=== PATIENT | female | born 1940 | race African-American/Black ===

== ENCOUNTER 2018-06-22 05:57 | Inpatient (IN) ==
[2018-06-17 13:16] LABS: Basophils # 0.1 10*3/uL (0.0-0.2); Basophils % 0.6 % (0.0-0.8); Eosinophils # 0.1 10*3/uL (0.0-0.87); Eosinophils % 1.5 % (0.00-10.9); Hematocrit 29.8 VOL% (35.7-47.0); Immature Granulocytes % 0.5 %; Immature Granulocytes Absolute 0.04 #; Lymphocytes # 1.1 10*3/uL (1.4-4.0); Lymphocytes % 12.7 % (21.3-54.2); Mean Corpuscular HGB Conc 30.2 GM/DL (32-36); Mean Corpuscular Hemoglobin 28 PG (27-34); Mean Corpuscular Volume 93.1 FL (87-102); Mean Platelet Volume 9.3 FL (9.6-12.0); Monocytes # 0.4 10*3/uL (0.11-0.8); Monocytes % 5.2 % (1.7-12.7); Neutrophils # 6.6 10*3/uL (1.4-7.4); Neutrophils % 79.5 % (38.7-73.9); Platelet Count 474 T/CUMM (130-400); White Blood Count 8.3 T/CUMM (4-12)
[2018-06-17 13:53] LABS: Calcium 9.4 MG/DL (8.5-10.1); Osmolality,Calculated 279.4 MOS/KG (273-304); Potassium 4.2 MMOL/L (3.5-5.1)
[~2018-06-22 05:57] MED LIST: CLINDAMYCIN INJ 50 ML IV ONE
[2018-06-22] MEDS ORDERED: FAMOTIDINE 20 MG TABLET PO ONE (06:00)
[2018-06-22] MEDS ORDERED: FAMOTIDINE 20 MG TABLET ONE (06:05)
[2018-06-22] MEDS ORDERED: CLINDAMYCIN INJ 900 MG in PREMIX 1 EACH IV ONE (06:30)
[2018-06-22] MEDS: LACTATED RINGERS 1,000 ML IV SCH ×3 (07:10→20:59)
[2018-06-22] MEDS ORDERED: SEVOFLURANE 1 UNIT/15 MINUTE INH ONE (08:49)
[2018-06-22] MEDS ORDERED: KETOROLAC 30 MG/1 ML VIAL ONE (08:50)
[2018-06-22] MEDS ORDERED: PROPOFOL 200 MG/20 ML VIAL IV ONE (08:50)
[2018-06-22] MEDS ORDERED: fentaNYL 100 MCG/2 ML VIAL ONE (08:50)
[2018-06-22] MEDS ORDERED: ONDANSETRON 4 MG/2 ML VIAL ONE (08:50)
[2018-06-22] MEDS ORDERED: DEXAMETHASONE 4 MG/1 ML VIAL ONE (08:50)
[2018-06-22] MEDS ORDERED: ACETAMINOPHEN 1,000 MG/100 ML VIAL IV ONE (08:51)
[2018-06-22] MEDS ORDERED: PHENYLEPHRINE 1 MG/10 ML SYRINGE IV ONE (08:51)
[2018-06-22] MEDS ORDERED: ONDANSETRON 4 MG/2 ML VIAL IV PRN (10:38)
[2018-06-22] MEDS ORDERED: ACETAMINOPHEN 325 MG TABLET PO PRN (10:38)
[2018-06-22] MEDS ORDERED: KETOROLAC 15 MG/1 ML VIAL IV PRN (10:38)
[2018-06-22] MEDS ORDERED: HYDROmorphone 2 MG/1 ML VIAL IV PRN ×2 (10:38)
[2018-06-22] MEDS ORDERED: ALBUTEROL/IPRATROPIUM 3 ML NEB RESP TX PRN (10:38)
[2018-06-22] MEDS ORDERED: BISACODYL 5 MG TABLET PO PRN (10:38)
[2018-06-22] MEDS ORDERED: GLUCAGON 1 MG VIAL IM PRN (10:44)
[2018-06-22] MEDS ORDERED: DEXTROSE 50% 25 GM/50 ML VIAL IV PRN (10:44)
[2018-06-22] MEDS: INSULIN LISPRO 100 UNIT/ML SUBCUT SCH ×3 (13:21→17:45)
[2018-06-22] MEDS ORDERED: INSULIN LISPRO 100 UNIT/ML ONE (15:31)
[2018-06-22] MEDS: CLINDAMYCIN INJ 900 MG in PREMIX 1 EACH IV SCH (17:45)
[2018-06-22] MEDS: CITALOPRAM 20 MG TABLET PO SCH (20:59)
[2018-06-22] MEDS: GABAPENTIN 300 MG CAPSULE PO SCH (21:00)
[2018-06-23] MEDS: CLINDAMYCIN INJ 900 MG in PREMIX 1 EACH IV SCH (01:25)
[2018-06-23 06:13] LABS: Basophils % 0.2 % (0.0-0.8); Eosinophils % 0.5 % (0.00-10.9); Hematocrit 18.7 VOL% (35.7-47.0); Immature Granulocytes % 0.3 %; Immature Granulocytes Absolute 0.03 #; Lymphocytes # 1.1 10*3/uL (1.4-4.0); Mean Corpuscular HGB Conc 33.2 GM/DL (32-36); Mean Corpuscular Hemoglobin 29 PG (27-34); Mean Corpuscular Volume 87.4 FL (87-102); Mean Platelet Volume 9.7 FL (9.6-12.0); Monocytes # 0.6 10*3/uL (0.11-0.8); Monocytes % 6.3 % (1.7-12.7); Neutrophils # 6.9 10*3/uL (1.4-7.4); Neutrophils % 79.7 % (38.7-73.9); Platelet Count 425 T/CUMM (130-400); Red Blood Count 2.14 MC/CUMM (3.8-5.5); White Blood Count 8.7 T/CUMM (4-12)
[2018-06-23 06:24] LABS: Hemoglobin 6.2 GM/DL (12.0-16.0)
[2018-06-23 06:27] LABS: Calcium 8.7 MG/DL (8.5-10.1); Osmolality,Calculated 282.8 MOS/KG (273-304); Potassium 4.2 MMOL/L (3.5-5.1)
[2018-06-23] MEDS ORDERED: SODIUM CHLORIDE 0.9% 1,000 ML IV PRN (06:35)
[2018-06-23] MEDS: INSULIN LISPRO 100 UNIT/ML SUBCUT SCH ×3 (07:56→17:22)
[2018-06-23] MEDS: GABAPENTIN 300 MG CAPSULE PO SCH ×2 (08:33→20:38)
[2018-06-23] MEDS: hydroCHLOROthiazide 25 MG TABLET PO SCH (08:33)
[2018-06-23] MEDS: PANTOPRAZOLE 40 MG TABLET PO SCH (08:33)
[2018-06-23] MEDS: SIMVASTATIN 10 MG TABLET PO SCH (08:33)
[2018-06-23] MEDS: QUINAPRIL 20 MG TABLET PO SCH (08:33)
[2018-06-23] MEDS: ASPIRIN EC 81 MG TABLET PO SCH (08:33)
[2018-06-23] MEDS: amLODIPine 2.5 MG TABLET PO SCH (08:34)
[2018-06-23] MEDS ORDERED: DEXTROSE 50% 25 GM/50 ML VIAL IV PRN (12:04)
[2018-06-23] MEDS ORDERED: GLUCAGON 1 MG VIAL IM PRN (12:04)
[2018-06-23 18:52] LABS: Hematocrit 31.6 VOL% (35.7-47.0); Hemoglobin 10.4 GM/DL (12.0-16.0)
[2018-06-23] MEDS: LACTATED RINGERS 1,000 ML IV SCH (19:57)
[2018-06-23] MEDS: metFORMIN 500 MG TABLET PO SCH (20:38)
[2018-06-23] MEDS: CITALOPRAM 20 MG TABLET PO SCH (20:38)
[2018-06-24 05:32] LABS: Basophils % 0.5 % (0.0-0.8); Eosinophils # 0.2 10*3/uL (0.0-0.87); Eosinophils % 1.9 % (0.00-10.9); Hematocrit 30.5 VOL% (35.7-47.0); Hemoglobin 10.3 GM/DL (12.0-16.0); Immature Granulocytes % 0.4 %; Immature Granulocytes Absolute 0.03 #; Lymphocytes % 11.8 % (21.3-54.2); Mean Corpuscular HGB Conc 33.8 GM/DL (32-36); Mean Corpuscular Hemoglobin 30 PG (27-34); Mean Corpuscular Volume 88.9 FL (87-102); Mean Platelet Volume 9.4 FL (9.6-12.0); Monocytes # 0.6 10*3/uL (0.11-0.8); Monocytes % 7.1 % (1.7-12.7); Neutrophils # 6.3 10*3/uL (1.4-7.4); Neutrophils % 78.3 % (38.7-73.9); Platelet Count 377 T/CUMM (130-400); Red Blood Count 3.43 MC/CUMM (3.8-5.5); Red Cell Distribution Width 13.2 % (9.3-17.3)
[2018-06-24 06:38] LABS: Calcium 8.7 MG/DL (8.5-10.1); Osmolality,Calculated 283.7 MOS/KG (273-304); Potassium 4.4 MMOL/L (3.5-5.1)
[2018-06-24] MEDS: LACTATED RINGERS 1,000 ML IV SCH (07:20)
[2018-06-24] MEDS: INSULIN LISPRO 100 UNIT/ML SUBCUT SCH ×3 (08:45→16:13)
[2018-06-24] MEDS: amLODIPine 2.5 MG TABLET PO SCH (09:17)
[2018-06-24] MEDS: ASPIRIN EC 81 MG TABLET PO SCH (09:17)
[2018-06-24] MEDS: SIMVASTATIN 10 MG TABLET PO SCH (09:17)
[2018-06-24] MEDS: GABAPENTIN 300 MG CAPSULE PO SCH (09:17)
[2018-06-24] MEDS: hydroCHLOROthiazide 25 MG TABLET PO SCH (09:17)
[2018-06-24] MEDS: metFORMIN 500 MG TABLET PO SCH (09:17)
[2018-06-24] MEDS: PANTOPRAZOLE 40 MG TABLET PO SCH (09:17)
[2018-06-24] MEDS: QUINAPRIL 20 MG TABLET PO SCH (09:17)
[2018-06-24 11:02] VITALS: BP 174/95
== END 2018-06-24 17:04 | disposition home health service (06) | DRG 240 ==
LOC: N.SDSINP 05:57 → N.3E 15:45
PROVIDERS: ADMIT Surgery; ATTEND Surgery